=== PATIENT | male | born 1975 | race Two or more races ===

== ENCOUNTER 2019-08-13 05:09 | Emergency (ER) | payer MEDICAID ==
[~2019-08-13] VITALS: Ht 170.2 cm; Wt 84.3 kg
[2019-08-13 05:19] VITALS: BP 140/85
--- NOTE | 2019-08-13 05:37 | NUR ---
SWABS OBTAINED & SENT.
[2019-08-13 06:01] LABS: RAPID INFLUENZA A Negative (Negative); RAPID INFLUENZA B Negative (Negative)
--- NOTE | 2019-08-13 07:03 | NUR ---
REPORT RECEIVED FROM SHANNON DUMAS.
--- NOTE | 2019-08-13 07:25 | NUR ---
BLANCKETS PROVIDED AT THIS TIME. PT'S AOX4. RESPS EVEN AND UNLABORED.
[2019-08-13] MEDS ORDERED: DEXAMETHASONE 4 MG TABLET PO ONE (07:30)
[2019-08-13] MEDS ORDERED: DEXAMETHASONE 4 MG TABLET ONE (07:38)
--- NOTE | 2019-08-13 07:44 | NUR ---
pt medicated per emar. pt tolerated well.
--- NOTE | 2019-08-13 07:50 | NUR ---
Patient given discharge instructions and they have confirmed that they understand the instructions. Patient ambulatory with steady gait.
== END 2019-08-13 07:51 | disposition home or self-care (01) ==
LOC: ED 07:42
DX: B34.9 Viral infection, unspecified (principal); I10 Essential (primary) hypertension
CPT/HCPCS: 71046; 87081; 87400; 87880; 99284